=== PATIENT | female | born 1955 | race Caucasian/White ===

== ENCOUNTER 2016-12-18 19:34 | Emergency (ER) | payer MEDICARE, OTHER, MEDICAID ==
--- NOTE | 2016-12-18 20:11 | EDM.PDOC ---
ED HPI GENERAL MEDICAL PROBLEM - General Stated Complaint: by ambulance Time Seen by Provider: 12/18/16 19:50 Source of Information: Reports: Patient, EMS, [facility] records History Limitations: Reports: No limitations - History of Present Illness INITIAL COMMENTS - FREE TEXT/NARRATIVE: This 61 yo female patient reports to the ED by [facility] due to increased shortness of breath. The patient had gotten an iron infusion in [place] earlier today. This patient reports she had a sudden increase in shortness of breath and pain throughout her entire chest. The patient reports her symptoms are much better now. The patient reports she had an iron infusion by Dr. Walsh in [place] today. The patient is being evaluated for a "blood disorder" in [place], but she has not been told what the name of the disorder is. The patient reports she has had similar symptoms in the past. The last similar incident resulted in her being transferred to [place], but nothing was found and she was discharged. Onset: today, sudden Onset Date: 12/18/16 Duration: Minutes:, Improving Location: Reports: chest (diffuse chest pains) Quality: Reports: Ache, Dull Severity: severe (initially) Improves with: Reports: Medication (oxygen) Worsens with: Reports: Movement Associated Symptoms: Reports: chest pain, shortness of breath, weakness Mid-Sternal Chest Pain Score (Numeric/FACES): 7 - Related Data Allergies Allergy/AdvReac Type Severity Reaction Status Date / Time No Known Allergies Allergy Verified 08/02/15 19:25 Home Meds: Home Meds Amitriptyline [Elavil] 100 mg PO BEDTIME 12/06/14 [History] Aspirin [Jade Chewable Aspirin] 81 mg PO DAILY 12/06/14 [History] Cholecalciferol (Vitamin D3) [Vitamin D3] 1,000 unit PO DAILY 12/06/14 [History] Hydrochlorothiazide 12.5 mg PO DAILY 12/06/14 [History] Insulin NPH Human Isophane [Novolin N] 16 units SQ BEDTIME 12/06/14 [History] Insulin NPH/Insulin Reg,Human [HumuLIN 70-30 Pen] 20 units SQ QAM 12/06/14 [ History] Insulin Regular, Human [NovoLIN R] 10 units SQ QAM 12/06/14 [History] Insulin Regular, Human [NovoLIN R] 16 units SQ BEDTIME 12/06/14 [History] Losartan [Cozaar] 50 mg PO BID 12/06/14 [History] Simvastatin [Zocor] 20 mg PO BEDTIME 12/06/14 [History] metFORMIN [Glucophage] 1,000 mg PO BID 12/06/14 [History] traMADol [Ultram] 50 mg PO Q4H PRN 12/06/14 [History] Vitamin B Complex 1 each PO DAILY 08/02/15 [History] Past Medical History HEENT History: Reports: Impaired vision, Other (see below) Other HEENT History: missing teeth - patient states is from diabetes Cardiovascular History: Reports: High cholesterol, Hypertension TOBACCO WEIGHER History: Reports: , Other (see below) Other OB/BYN History: miscarriage Musculoskeletal History: Reports: Other (see below) 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 Psychiatric History: Reports: Anxiety, Depression Endocrine/Metabolic History: Reports: Diabetes, type II - Infectious Disease History Infectious Disease History: Reports: Chicken pox, Measles, Mumps - Past Surgical History HEENT Surgical History: Reports: Adenoidectomy, Laser surgery, Tonsillectomy GI Surgical History: Reports: Cholecystectomy Female Surgical History: Reports: section Social & Family History - Tobacco Use Smoking Status *Q: Never Smoker Second Hand Smoke Exposure: No - Alcohol Use Days Per Week of Alcohol Use: 0 - Recreational Drug Use Recreational Drug Use: No ED ROS GENERAL - Review of Systems Review Of Systems: ROS reveals no pertinent complaints other than HPI. ED EXAM, GENERAL - Physical Exam Exam: See Below Exam Limited By: No limitations General Appearance: alert, WD/WN, moderate distress, obese Eye Exam: bilateral eye: EOMI, normal inspection, PERRL Ears: normal external exam, normal canal, hearing grossly normal, normal TMs Nose: normal inspection, normal mucosa, no blood Throat/Mouth: Normal inspection, Normal lips, Normal teeth, Normal gums, Normal oropharynx, Normal voice, No airway compromise Head: atraumatic, normocephalic Neck: normal inspection, supple, non-tender, full range of motion Respiratory/Chest: no respiratory distress, decreased breath sounds (right lower lobes) Cardiovascular: normal peripheral pulses, regular rate, rhythm, no gallop, no JVD, no murmur, no rub GI/Abdominal: normal bowel sounds, soft, non tender, no organomegaly, no distention, no abnormal bruit, no mass (Female) Exam: Deferred Rectal (Female) Exam: Deferred Back Exam: normal inspection, full range of motion, NT Extremities: normal inspection, normal range of motion, non-tender, normal capillary refill, no pedal edema Neurological: alert, oriented, CN II-XII intact, normal cognition, normal gait, normal reflexes, no motor/sensory deficits Psychiatric: normal affect, normal mood Skin Exam: Warm, Dry, Intact, Normal color, No rash Lymphatic: no adenopathy Course - Vital Signs Last Recorded V/S: Last Vital Signs Temp 36.2 C 12/18/16 19:34 Pulse 103 H 12/18/16 19:34 Resp 34 H 12/18/16 19:34 BP 202/108 H 12/18/16 19:34 Pulse Ox 88 L 12/18/16 19:34 - Orders/Labs/Meds Orders: Active Orders 24 hr Category Date Time Status EKG Documentation Completion [RC] URGENT Care 12/18/16 19:43 Active CULTURE BLOOD [BC] Stat Lab 12/18/16 22:07 Ordered CULTURE BLOOD [BC] Stat Lab 12/18/16 22:07 Ordered cefTRIAXone [Rocephin] 1 gm Med 12/18/16 22:08 Ordered Sodium Chloride 0.9% [Normal Saline] 50 ml IV ONETIME Blood Culture x2 Reflex Set [OM.PC] Stat Oth 12/18/16 22:07 Ordered Medication Orders Ceftriaxone Sodium 1 gm/ (Sodium Chloride) 50 mls @ 100 mls/hr IV ONETIME ONE Stop: 12/18/16 22:37 Labs: Laboratory Tests 12/18/16 12/18/16 12/18/16 Range/Units 19:50 19:50 19:50 WBC 15.8 H (5.0-10.0) 10^3/uL RBC 3.09 L (4.2-5.4) 10^6/uL Hgb 10.0 L (12.0-16.0) g/dL Hct 31.0 L (37.0-47.0) % MCV 100.3 H (80-100) fL MCH 32.4 (27.0-34.0) pg MCHC 32.3 L (33.0-35.0) g/dL Plt Count 534 H (150-450) 10^3/uL Neut % (Auto) 68.6 (42.2-75.2) % Lymph % (Auto) 20.4 L (20.5-50.1) % [place] % (Auto) 6.5 (2-8) % Eos % (Auto) 4.2 H (1.0-3.0) % Baso % (Auto) 0.3 (0.0-1.0) % PT 9.6 (9.0-12.0) SEC INR 1.0 (0.9-1.2) D-Dimer, Quantitative 1050 H (0-400) ng/mL Sodium 134 L (135-145) mmol/L Potassium 4.9 (3.6-5.0) mmol/L Chloride 106 (101-111) mmol/L Carbon Dioxide 24.0 (21.0-31.0) mmol/L Anion Gap 8.9 BUN 31 H (7-18) mg/dL Creatinine 1.8 H (0.6-1.3) mg/dL Est Cr Clr Drug Dosing TNP Estimated GFR (MDRD) 29 BUN/Creatinine Ratio 17.22 Glucose 294 H (74-105) mg/dL Calcium 7.8 L (8.4-10.2) mg/dl Total Bilirubin 0.3 (0.2-1.0) mg/dL AST 25 (10-42) IU/L ALT 18 (10-60) IU/L Alkaline Phosphatase 64 (42-121) IU/L Troponin I 0.03 H* (0.00-0.02) ng/ml B-Natriuretic Peptide (0-100) pg/ml Total Protein 5.3 L (6.7-8.2) g/dl Albumin 2.3 L (3.2-5.5) g/dl Globulin 3.0 Albumin/Globulin Ratio 0.77 05//17 Range/Units 19:50 WBC (5.0-10.0) 10^3/uL RBC (4.2-5.4) 10^6/uL Hgb (12.0-16.0) g/dL Hct (37.0-47.0) % MCV (80-100) fL MCH (27.0-34.0) pg MCHC (33.0-35.0) g/dL Plt Count (150-450) 10^3/uL Neut % (Auto) (42.2-75.2) % Lymph % (Auto) (20.5-50.1) % [place] % (Auto) (2-8) % Eos % (Auto) (1.0-3.0) % Baso % (Auto) (0.0-1.0) % PT (9.0-12.0) SEC INR (0.9-1.2) D-Dimer, Quantitative (0-400) ng/mL Sodium (135-145) mmol/L Potassium (3.6-5.0) mmol/L Chloride (101-111) mmol/L Carbon Dioxide (21.0-31.0) mmol/L Anion Gap BUN (7-18) mg/dL Creatinine (0.6-1.3) mg/dL Est Cr Clr Drug Dosing Estimated GFR (MDRD) BUN/Creatinine Ratio Glucose (74-105) mg/dL Calcium (8.4-10.2) mg/dl Total Bilirubin (0.2-1.0) mg/dL AST (10-42) IU/L ALT (10-60) IU/L Alkaline Phosphatase (42-121) IU/L Troponin I (0.00-0.02) ng/ml B-Natriuretic Peptide 2430 H (0-100) pg/ml Total Protein (6.7-8.2) g/dl Albumin (3.2-5.5) g/dl Globulin Albumin/Globulin Ratio Meds: Medications Generic Name Dose Route Start Last Admin Trade Name Freq PRN Reason Stop Dose Admin Ceftriaxone Sodium 1 gm/ 50 mls @ 100 mls/hr 12/18/16 22:08 Sodium Chloride IV 12/18/16 22:37 ONETIME ONE Discontinued Medications Generic Name Dose Route Start Last Admin Trade Name Freq PRN Reason Stop Dose Admin Furosemide 40 mg 12/18/16 22:00 Lasix IVPUSH 12/18/16 22:01 NOW ONE Departure - Departure Time of Disposition: 22:08 Disposition: DC/Tfer to Acute Hospital 02 Condition: poor Clinical Impression: Elevated troponin, CHF (congestive heart failure) Pneumonia Qualifiers: Pneumonia type: due to unspecified organism Laterality: bilateral Lung location : lower lobe of lung Qualified Code(s): J18.9 - Pneumonia, unspecified organism Care Plan Goals: Discussed the history, examination, treatments, lab, x-ray and EKG results with Dr. Mancia (Hospitalist with [facility] in [place]). Dr. Mancia accepted the patient for continued evaluation and management as an inpatient at [facility] in [place]. The patient will be transported by [facility]. - My Orders Last 24 Hours: My Active Orders 12/18/16 19:43 EKG Documentation Completion [RC] URGENT 12/18/16 22:07 CULTURE BLOOD [BC] Stat CULTURE BLOOD [BC] Stat Blood Culture x2 Reflex Set [OM.PC] Stat 12/18/16 22:08 cefTRIAXone [Rocephin] 1 gm Sodium Chloride 0.9% [Normal Saline] 50 ml IV ONETIME - Assessment/Plan Last 24 Hours: My Active Orders 12/18/16 19:43 EKG Documentation Completion [RC] URGENT 12/18/16 22:07 CULTURE BLOOD [BC] Stat CULTURE BLOOD [BC] Stat Blood Culture x2 Reflex Set [OM.PC] Stat 12/18/16 22:08 cefTRIAXone [Rocephin] 1 gm Sodium Chloride 0.9% [Normal Saline] 50 ml IV ONETIME
[2016-12-18 20:25] LABS: CHLORIDE,CL 106 mmol/L (101-111); SODIUM,NA 134 mmol/L (135-145)
[2016-12-18] MEDS ORDERED: Furosemide 40 MG/4 ML VIAL IVPUSH ONE (22:00)
[2016-12-18] MEDS ORDERED: cefTRIAXone 1 GM in Sodium Chloride 0.9% 50 ML IV ONE (22:08)
[2016-12-18] MEDS ORDERED: Acetaminophen 325 MG Tab PO ONE (23:26)
[2016-12-19 02:37] VITALS: BP 162/64
--- NOTE | 2017-01-12 11:33 | EKG ---
12/18/2016- ELIZABET ORTEZ - EKG per my reading shows sinus rhythm at a rate of 104. [facility] /[id number]
== END 2016-12-18 23:43 ==
LOC: DL.ED 19:34
DX: I50.9 Heart failure, unspecified (principal); J18.9 Pneumonia, unspecified organism; E78.00 Pure hypercholesterolemia, unspecified; I10 Essential (primary) hypertension; E11.9 Type 2 diabetes mellitus without complications; Z90.49 Acquired absence of other specified parts of digestive tract
CPT/HCPCS: 36415; 71010; 80053; 83880; 84484; 85025; 85379; 85610; 87040; 93005; 96365; 96375; 99285; A9270; J0696; J1940; J7050; 93010; 99284

== ENCOUNTER 2019-04-29 16:06 | Emergency (ER) | payer MEDICARE, MEDICAID ==
[2019-04-29 17:01] LABS: ANION GAP 15.8
--- NOTE | 2019-04-29 18:10 | EDM.PDOC ---
ED HPI GENERAL MEDICAL PROBLEM - General Chief Complaint: Chest Pain Stated Complaint: COMING IN PER DR TRUONG FROM DIALYSIS Time Seen by Provider: 04/29/19 16:30 Source of Information: Reports: Patient, [facility] Care Records, RN, RN Notes Reviewed History Limitations: Reports: No Limitations - History of Present Illness INITIAL COMMENTS - FREE TEXT/NARRATIVE: Pt to ER with NH staff from Dialysis. Dialysis staff states the patient was c/o chest pain during the dialysis run and was taken off about 30 minutes early. Prior to transferring the patient back to [facility] where she resides, the patient was brought to ER for evaluation. When asked, the patient states she does not remember what happened during dialysis. When asked if she has any pain at this time, the patient denies. Patient denies N/V/D. Denies recent illness. States she is unsure why she is on dialysis. Admits to hx of diabetes. Onset: Today - Related Data Allergies Allergy/AdvReac Type Severity Reaction Status Date / Time No Known Allergies Allergy Verified 04/29/19 16:24 Home Meds: Home Meds Aspirin [Jade Chewable Aspirin] 81 mg PO DAILY 12/06/14 [History] Cholecalciferol (Vitamin D3) [Vitamin D3] 1,000 unit PO DAILY 12/06/14 [History] Insulin NPH Human Isophane [Novolin N] 16 units SQ BEDTIME 12/06/14 [History] Insulin NPH/Insulin Reg,Human [HumuLIN 70-30 Pen] 20 units SQ QAM 12/06/14 [ History] Insulin Regular, Human [NovoLIN R] 10 units SQ QAM 12/06/14 [History] Insulin Regular, Human [NovoLIN R] 16 units SQ BEDTIME 12/06/14 [History] Losartan [Cozaar] 100 mg PO DAILY 12/06/14 [History] Simvastatin [Zocor] 20 mg PO BEDTIME 12/06/14 [History] traMADol [Ultram] 50 mg PO Q6HR PRN 12/06/14 [History] Amitriptyline [Elavil] 25 mg PO DAILY 04/29/19 [History] B Complex & C No.20/Folic Acid [Mynephrocaps Softgel] 1 tab PO DAILY 04/29/19 [ History] Bumetanide 2 mg PO DAILY 04/29/19 [History] Calcium Acetate [PhosLo] 3 oz PO TID 04/29/19 [History] Carvedilol 25 mg PO BID 04/29/19 [History] Pantoprazole [ProTONIX] 40 mg PO DAILY 04/29/19 [History] Sertraline [Zoloft] 50 mg PO DAILY 04/29/19 [History] Spironolactone [Aldactone] 25 mg PO DAILY 04/29/19 [History] metOLazone [Metolazone] 5 mg PO DAILY 04/29/19 [History] Past Medical History HEENT History: Reports: Impaired Vision, Other (See Below) Other HEENT History: missing teeth - patient states is from diabetes Cardiovascular History: Reports: High Cholesterol, Hypertension [employer] HEL[employer] History: Reports: , Other (See Below) Other [employer] History: miscarriage Musculoskeletal History: Reports: Other (See Below) 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 Psychiatric History: Reports: Anxiety, Depression Endocrine/Metabolic History: Reports: Diabetes, Type II Other Oncologic History: senior care reports that patient had iron infusion today "for her cancer" - Infectious Disease History Infectious Disease History: Reports: Chicken Pox, Measles, Mumps - Past Surgical History HEENT Surgical History: Reports: Adenoidectomy, Laser Surgery, Tonsillectomy GI Surgical History: Reports: Cholecystectomy Female Surgical History: Reports: Section Social & Family History - Family History Family Medical History: Noncontributory - Tobacco Use Smoking Status *Q: Unknown Ever Smoked - Caffeine Use Caffeine Use: Reports: None - Recreational Drug Use Recreational Drug Use: No ED ROS GENERAL - Review of Systems Review Of Systems: ROS reveals no pertinent complaints other than HPI. ED EXAM, GENERAL - Physical Exam Exam: See Below Exam Limited By: No Limitations General Appearance: Alert, WD/WN, No Apparent Distress Eye Exam: Bilateral Eye: Normal Inspection Ears: Normal External Exam, Hearing Grossly Normal Nose: Normal Inspection Throat/Mouth: Normal Inspection, Normal Voice, No Airway Compromise Head: Atraumatic, Normocephalic Neck: Normal Inspection, Supple, Non-Tender, Limited Range of Motion Respiratory/Chest: No Respiratory Distress, No Accessory Muscle Use, Chest Non- Tender, Decreased Breath Sounds Cardiovascular: Normal Peripheral Pulses, No Edema, No Gallop, No JVD, No Murmur , No Rub, Irregularly Irregular Peripheral Pulses: 2+: Radial (R) GI/Abdominal: Normal Bowel Sounds, Soft, Non-Tender, No Organomegaly, No Distention, No Abnormal Bruit, No Mass, Pelvis Stable (Female) Exam: Deferred Rectal (Female) Exam: Deferred Back Exam: Normal Inspection, Full Range of Motion Extremities: Normal Inspection, Normal Range of Motion, Non-Tender, No Pedal Edema, Normal Capillary Refill, Other (Left arm mid forearm stump. ) Neurological: Alert, Oriented Psychiatric: Flat Affect Skin Exam: Warm, Dry, Intact, Normal Color, No Rash Lymphatic: No Adenopathy Course - Vital Signs Last Recorded V/S: Last Vital Signs Temp 98.2 F 04/29/19 18:55 Pulse 65 04/29/19 18:55 Resp 17 04/29/19 18:55 BP 100/67 04/29/19 18:55 Pulse Ox 96 04/29/19 18:55 - Orders/Labs/Meds Orders: Active Orders 24 hr Category Date Time Status EKG Documentation Completion [RC] STAT Care 04/29/19 16:20 Active CULTURE BLOOD [BC] Stat Lab 04/29/19 18:58 Received CULTURE BLOOD [BC] Stat Lab 04/29/19 19:04 Received Blood Culture x2 Reflex Set [OM.PC] Stat Oth 04/29/19 18:34 Ordered Labs: Laboratory Tests 04/29/19 04/29/19 04/29/19 Range/Units 16:30 16:30 16:31 WBC 13.7 H (5.0-10.0) 10^3/uL RBC 3.66 L (4.2-5.4) 10^6/uL Hgb 12.5 D (12.0-16.0) g/dL Hct 37.6 (37.0-47.0) % MCV 102.7 H (80-100) fL MCH 34.2 H (27.0-34.0) pg MCHC 33.2 (33.0-35.0) g/dL Plt Count 334 D (150-450) 10^3/uL Neut % (Auto) 90.5 H (42.2-75.2) % Lymph % (Auto) 4.9 L (20.5-50.1) % [place] % (Auto) 4.1 (2-8) % Eos % (Auto) 0.1 L (1.0-3.0) % Baso % (Auto) 0.4 (0.0-1.0) % PT 9.9 (9.0-12.0) SEC INR 1.0 (0.9-1.2) Sodium 139 (135-145) mmol/L Potassium 3.8 (3.6-5.0) mmol/L Chloride 96 L (101-111) mmol/L Carbon Dioxide 31.0 (21.0-31.0) mmol/L Anion Gap 15.8 BUN 21 H (7-18) mg/dL Creatinine 2.8 H (0.6-1.3) mg/dL Est Cr Clr Drug Dosing 16.48 mL/min Estimated GFR (MDRD) 17 BUN/Creatinine Ratio 7.50 Glucose 196 H (74-105) mg/dL Calcium 8.3 L (8.4-10.2) mg/dl Total Bilirubin 0.8 (0.2-1.0) mg/dL AST 36 (10-42) IU/L ALT 36 (10-60) IU/L Alkaline Phosphatase 75 (42-121) IU/L Troponin I 0.03 H* (0.00-0.02) ng/ml B-Natriuretic Peptide 687 H (0-100) pg/ml Total Protein 6.9 (6.7-8.2) g/dl Albumin 3.6 (3.2-5.5) g/dl Globulin 3.3 Albumin/Globulin Ratio 1.09 Meds: Medications Discontinued Medications Generic Name Dose Route Start Last Admin Trade Name Freq PRN Reason Stop Dose Admin Levofloxacin 500 mg 04/29/19 18:42 04/29/19 18:52 Levaquin PO 04/29/19 18:43 500 mg ONETIME ONE Administration - Radiology Interpretation Free Text/Narrative:: Chest xray: FINDINGS: Lungs: No suspicious pulmonary nodules or areas of lung consolidation. Pleural space: Costophrenic angles are sharp. No pneumothorax. Heart/Mediastinum: Unremarkable. No cardiomegaly. Vasculature: Left subclavian or axillary vascular stent. Bones/joints: Age appropriate. IMPRESSION: 1. No active disease of the chest. 2. Appearance improved when compared to CR Chest 1V Frontal 12/18/2016 8:35 PM. Thank you for allowing us to participate in the care of your patient. Dictated and Authenticated by: Regino Judge MD 04/29/2019 5:50 PM Central Time ([place] & [place]) See rad report - Re-Assessments/Exams Free Text/Narrative Re-Assessment/Exam: 04/30/19 09:46 Discussed patient case with Dr. Truong who states the patient can be transferred back to [facility] after blood cultures have been obtained and oral Levaquin given. She will follow care from there. Departure - Departure Time of Disposition: 19:00 Disposition: DC[place] [id number] Reason for Transfer *Q: Other Condition: Fair Clinical Impression: Chest pain Qualifiers: Chest pain type: unspecified Qualified Code(s): R07.9 - Chest pain, unspecified Leucocytosis Qualifiers: Leukocytosis type: unspecified Qualified Code(s): D72.829 - Elevated white blood cell count, unspecified Referrals: PCP,None [Primary Care Provider] - Forms: ED Department Discharge Additional Instructions: Further orders per Dr. Truong Patient may be discharged to [facility] at this time - My Orders Last 24 Hours: My Active Orders 04/29/19 16:20 EKG Documentation Completion [RC] STAT 04/29/19 18:34 Blood Culture x2 Reflex Set [OM.PC] Stat 04/29/19 18:58 CULTURE BLOOD [BC] Stat 04/29/19 19:04 CULTURE BLOOD [BC] Stat - Assessment/Plan Last 24 Hours: My Active Orders 04/29/19 16:20 EKG Documentation Completion [RC] STAT 04/29/19 18:34 Blood Culture x2 Reflex Set [OM.PC] Stat 04/29/19 18:58 CULTURE BLOOD [BC] Stat 04/29/19 19:04 CULTURE BLOOD [BC] Stat
[2019-04-29] MEDS ORDERED: Levofloxacin 500 MG Tab PO ONE (18:42)
[2019-04-29 18:55] VITALS: BP 100/67; PULSE 65
== END 2019-04-29 19:01 ==
LOC: DL.ED 16:06
DX: R07.9 Chest pain, unspecified (principal); D72.829 Elevated white blood cell count, unspecified; E11.9 Type 2 diabetes mellitus without complications; F41.9 Anxiety disorder, unspecified; F32.9 Major depressive disorder, single episode, unspecified; I10 Essential (primary) hypertension; E78.00 Pure hypercholesterolemia, unspecified; Z79.82 Long term (current) use of aspirin; Z79.4 Long term (current) use of insulin; Z79.899 Other long term (current) drug therapy
CPT/HCPCS: 36415; 71045; 80053; 83880; 84484; 85025; 85610; 87040; 93005; 99285; A9270; 87077; 87186

== ENCOUNTER 2019-04-30 12:37 | Emergency (ER) | payer MEDICARE, MEDICAID ==
--- NOTE | 2019-04-30 11:16 | EDM.PDOC ---
ED HPI GENERAL MEDICAL PROBLEM - General Stated Complaint: GENERAL Time Seen by Provider: 04/30/19 12:32 Source of Information: Reports: Patient, M[facility] Records, Provider (Dr. Truong), RN, RN Notes Reviewed History Limitations: Reports: No Limitations - History of Present Illness INITIAL COMMENTS - FREE TEXT/NARRATIVE: Patient to ER per [place] transportation van. Patient was seen after dialysis yesterday with c/o chest pain. Patient was taken off dialysis 1/2 hour early due to the chest pain. Upon arrival to the ER she was pain free. Labs were completed. Preliminary blood cultures were positive. Patient had been treated with Levaquin 500mg yesterday. PCP Dr. Truong was informed of blood cultures and patient was transported back to the ER for labwork, IV vanco, and transfer to [facility]. Upon arrival to the ER, patient states she understands she has an infection and needs to be transferred to [place]. She states she presently has a chest "pressure", states it is not a pain, but a pressure. States the pain improves when she presses on her chest. Onset: Gradual Frontal Head Pain Score (Numeric/FACES): 7 - Related Data Allergies Allergy/AdvReac Type Severity Reaction Status Date / Time No Known Allergies Allergy Verified 04/30/19 13:01 Home Meds: Home Meds Aspirin [Jade Chewable Aspirin] 81 mg PO DAILY 12/06/14 [History] Cholecalciferol (Vitamin D3) [Vitamin D3] 1,000 unit PO DAILY 12/06/14 [History] Insulin NPH Human Isophane [Novolin N] 16 units SQ BEDTIME 12/06/14 [History] Insulin NPH/Insulin Reg,Human [HumuLIN 70-30 Pen] 20 units SQ QAM 12/06/14 [ History] Insulin Regular, Human [NovoLIN R] 10 units SQ QAM 12/06/14 [History] Insulin Regular, Human [NovoLIN R] 14 units SQ BEDTIME 12/06/14 [History] Losartan [Cozaar] 100 mg PO DAILY 12/06/14 [History] Simvastatin [Zocor] 20 mg PO BEDTIME 12/06/14 [History] traMADol [Ultram] 50 mg PO Q6HR PRN 12/06/14 [History] Amitriptyline [Elavil] 25 mg PO DAILY 04/29/19 [History] B Complex & C No.20/Folic Acid [Mynephrocaps Softgel] 1 tab PO DAILY 04/29/19 [ History] Bumetanide 2 mg PO DAILY 04/29/19 [History] Calcium Acetate [PhosLo] 3 oz PO TID 04/29/19 [History] Carvedilol 25 mg PO BID 04/29/19 [History] Pantoprazole [ProTONIX] 40 mg PO DAILY 04/29/19 [History] Sertraline [Zoloft] 50 mg PO DAILY 04/29/19 [History] Spironolactone [Aldactone] 25 mg PO DAILY 04/29/19 [History] Past Medical History HEENT History: Reports: Impaired Vision, Other (See Below) Other HEENT History: missing teeth - patient states is from diabetes Cardiovascular History: Reports: High Cholesterol, Hypertension 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: , Other (See Below) Other VACUUM COOKER OPERATOR History: miscarriage Musculoskeletal History: Reports: Other (See Below) 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 Psychiatric History: Reports: Anxiety, Depression Endocrine/Metabolic History: Reports: Diabetes, Type II Other Oncologic History: care home reports that patient had iron infusion today "for her cancer" - Infectious Disease History Infectious Disease History: Reports: Chicken Pox, Measles, Mumps - Past Surgical History HEENT Surgical History: Reports: Adenoidectomy, Laser Surgery, Tonsillectomy GI Surgical History: Reports: Cholecystectomy Female Surgical History: Reports: Section Social & Family History - Family History Family Medical History: Noncontributory - Caffeine Use Caffeine Use: Reports: None ED ROS GENERAL - Review of Systems Review Of Systems: ROS reveals no pertinent complaints other than HPI. ED EXAM, GENERAL - Physical Exam Exam: See Below Exam Limited By: No Limitations General Appearance: Alert, WD/WN, Mild Distress Eye Exam: Bilateral Eye: EOMI, Normal Inspection Ears: Normal External Exam, Hearing Grossly Normal Nose: Normal Inspection Throat/Mouth: Normal Inspection, Normal Voice, No Airway Compromise Head: Atraumatic, Normocephalic Neck: Normal Inspection, Supple, Non-Tender, Full Range of Motion Respiratory/Chest: No Respiratory Distress, No Accessory Muscle Use, Decreased Breath Sounds, Other (chest tender with palpation) Cardiovascular: Normal Peripheral Pulses, Regular Rate, Rhythm, No Edema, No Gallop, No JVD, No Murmur, No Rub GI/Abdominal: Normal Bowel Sounds, Soft, Non-Tender (Female) Exam: Deferred Rectal (Female) Exam: Deferred Back Exam: Normal Inspection, Decreased Range of Motion Extremities: Normal Inspection, Limited Range of Motion, Other (left arm stump) Neurological: Alert, Oriented, CN II-XII Intact, Normal Cognition Psychiatric: Anxious, Tearful Skin Exam: Warm, Dry, Intact, Normal Color, No Rash Lymphatic: No Adenopathy Course - Vital Signs Last Recorded V/S: Last Vital Signs Temp 98.1 F 04/30/19 12:51 Pulse 60 04/30/19 12:51 Resp 18 04/30/19 12:51 BP 113/47 L 04/30/19 12:51 Pulse Ox 99 04/30/19 12:51 - Orders/Labs/Meds Labs: Laboratory Tests 04/30/19 04/30/19 04/30/19 Range/Units 12:45 12:45 12:45 WBC 9.3 (5.0-10.0) 10^3/uL RBC 3.76 L (4.2-5.4) 10^6/uL Hgb 12.7 (12.0-16.0) g/dL Hct 38.0 (37.0-47.0) % MCV 101.1 H (80-100) fL MCH 33.8 (27.0-34.0) pg MCHC 33.4 (33.0-35.0) g/dL Plt Count 295 (150-450) 10^3/uL Neut % (Auto) 80.4 H (42.2-75.2) % Lymph % (Auto) 14.0 L (20.5-50.1) % [place] % (Auto) 5.1 (2-8) % Eos % (Auto) 0.2 L (1.0-3.0) % Baso % (Auto) 0.3 (0.0-1.0) % Sodium 136 (135-145) mmol/L Potassium 3.7 (3.6-5.0) mmol/L Chloride 95 L (101-111) mmol/L Carbon Dioxide 27.0 (21.0-31.0) mmol/L Anion Gap 17.7 BUN 39 H (7-18) mg/dL Creatinine 4.7 H D (0.6-1.3) mg/dL Est Cr Clr Drug Dosing 9.81 mL/min Estimated GFR (MDRD) 9 BUN/Creatinine Ratio 8.29 Glucose 178 H (74-105) mg/dL Lactic Acid 1.5 (0.5-2.2) mmol/L Calcium 8.8 (8.4-10.2) mg/dl Total Bilirubin 0.5 (0.2-1.0) mg/dL AST 47 H (10-42) IU/L ALT 39 (10-60) IU/L Alkaline Phosphatase 73 (42-121) IU/L Troponin I 0.04 H* (0.00-0.02) ng/ml Total Protein 6.6 L (6.7-8.2) g/dl Albumin 3.4 (3.2-5.5) g/dl Globulin 3.2 Albumin/Globulin Ratio 1.06 Meds: Medications Discontinued Medications Generic Name Dose Route Start Last Admin Trade Name Freq PRN Reason Stop Dose Admin Vancomycin HCl 1 gm/ Sodium 250 mls @ 167 mls/hr 04/30/19 11:11 04/30/19 13: 09 Chloride IV 04/30/19 12:40 167 mls/hr ONETIME ONE Administration Sodium Chloride 10 ml 04/30/19 11:11 Saline Flush FLUSH ASDIRECTED PRN Keep Vein Open - Re-Assessments/Exams Free Text/Narrative Re-Assessment/Exam: 04/30/19 11:14 Pt to ER per [place] transportation van. Patient sent per Dr. Truong orders. Labwork from last evening shows positive blood cultures. Dr. Truong has talked with Dr. Rosen at [facility] in [place] and he has accepted the patient for admission at [facility] in [place]. Patient will be transferred to [place] via [facility]. Departure - Departure Time of Disposition: 13:24 Disposition: DC/Tfer to Acute Hospital 02 Condition: Fair Clinical Impression: Chronic kidney disease with end stage renal failure on dialysis Sepsis Qualifiers: Sepsis type: sepsis due to unspecified organism Sepsis acute organ dysfunction status: unspecified Qualified Code(s): A41.9 - Sepsis, unspecified organism Diabetes Qualifiers: Diabetes mellitus type: type 2 Diabetes mellitus rat exterminator insulin use: with rat exterminator use Diabetes mellitus complication status: with kidney complications Diabetes mellitus complication detail: with chronic kidney disease Chronic kidney disease stage: on chronic dialysis Qualified Code(s): E11.22 - Type 2 diabetes mellitus with diabetic chronic kidney disease - Discharge Information *PRESCRIPTION DRUG MONITORING PROGRAM REVIEWED*: No *COPY OF PRESCRIPTION DRUG MONITORING REPORT IN PATIENT WILLY: No Referrals: PCP,Unknown [Primary Care Provider] - Forms: ED Department Discharge
--- NOTE | 2019-04-30 11:58 | PCM.SN ---
- Free Text/Narrative Note: Tabatha Dukes is 63-year-old female resident of [facility]. She has ESRD and on hemodialysis (), She was seen in the ER on the evening of after she complained of not feeling well during dialysis. She complained of some chest pain. She was taken off 30 minutes early and brought to the ER for further evaluation. This morning she is being brought back to the ER for transfer to [place] for the following reasons: 1. Two sets of blood cultures were drawn last night. This morning, all 4 bottles are positive for a Gram positive organism, in clusters. ID/sensitivity pending. 2. Recurrent chest pain at [facility] this morning. Events at [facility] home: At 0730 this morning she complained again of "not feeling well" but no specific complaints. Some nausea, no vomiting. She then ate breakfast, took meds and drank 240 ml of fluid. About 2 hours later, she complained of back pain and later chest pain. The CP was non-radiating and she was rubbing her sternum and epigastric areas. The back pain was in the lower thoracic-upper lumbar area. She was given 50 mg of Tramadol for the back pain. Vital signs: 0930: Temp 99.7. 137/60. HR 75. RR 20. 96% on RA. 1025: Temp 98.5. 124/57. HR 70. RR 20. 96% on RA. Slightly diaphoretic. Impression: 1. Possible sepsis in a dailysis patient: Four/four blood culture bottles positive for a Gram positive organism. 2. Chest pain. Cardiac Cath at [facility] in 2015 showed non-obstructive CAD with reduced EF. Plan: 1. Case discussed with , Hospitalist in [place]. He accepted Kelle for transfer and admission to [facility] at 1050 AM. 2. Kelle will go to [facility] and will be transferred from there. New blood cultures will be drawn. She will be given 1 gm IV Vanco. She was given 500 mg po levofloxacin last night. Additional lab work will be done prior to transfer: WBC, lactate, troponin. The case and plan were discussed with the ER provider, Anita Bryan NP. Fortunately, Kelle was seen by Ms. Bryan last evening as well. Condition at the time of transfer from [facility] to [place]: stable. Code Status: Full Code.
[~2019-04-30 12:37] MED LIST: Sodium Chloride 0.9% 10 ML Syringe FLUSH PRN
[2019-04-30 12:55] VITALS: BP 113/47; PULSE 60
[2019-04-30 13:26] LABS: ANION GAP 17.7
== END 2019-04-30 13:35 ==
LOC: DL.ED 12:37
DX: A41.9 Sepsis, unspecified organism (principal); E11.22 Type 2 diabetes mellitus with diabetic chronic kidney disease; I12.0 Hypertensive chronic kidney disease with stage 5 chronic kidney disease or end stage renal disease; N18.6 End stage renal disease; F32.9 Major depressive disorder, single episode, unspecified; E78.00 Pure hypercholesterolemia, unspecified; F41.9 Anxiety disorder, unspecified; Z90.49 Acquired absence of other specified parts of digestive tract; Z98.890 Other specified postprocedural states; Z79.899 Other long term (current) drug therapy; Z79.4 Long term (current) use of insulin; Z79.82 Long term (current) use of aspirin
CPT/HCPCS: 36415; 80053; 83605; 84484; 85025; 87040; 93005; 96365; 99285; J3370; J7050; 87077; 87186

== ENCOUNTER 2019-05-06 16:13 | Emergency (ER) | payer MEDICARE, MEDICAID ==
[2019-05-06 16:25] VITALS: BP 104/48; PULSE 81
[2019-05-06 17:37] LABS: ANION GAP 17.8; CHLORIDE,CL 98 mmol/L (101-111); SODIUM,NA 139 mmol/L (135-145)
--- NOTE | 2019-05-06 18:09 | EDM.PDOC ---
Scribed by Renata Day 05/06/19 1697 for Chelsy Rodriguez NP ED HPI GENERAL MEDICAL PROBLEM - General Chief Complaint: General Stated Complaint: CAME FROM DIALYSIS- SICK Time Seen by Provider: 05/06/19 16:38 Source of Information: Reports: Patient, RN, RN Notes Reviewed History Limitations: Reports: No Limitations - History of Present Illness INITIAL COMMENTS - FREE TEXT/NARRATIVE: Patient is a 63-year-old female who comes from dialysis. She was in [facility] in [place] and was discharged on 05/04/19 for septicemia. She was attending dialysis today and her blood pressure dropped so they stopped dialysis. They gave her a fluid bolus, 200 ml and Ancef. She has a history of diabetes mellitus with blood sugar of 330. She is a full code per Dr. Truong. [facility] [place] and managed by Dr. Truong. Denies chest pain or shortness of breath. Onset: Gradual Duration: Constant Location: Reports: Generalized Quality: Reports: Ache Severity: Moderate Improves with: Reports: None Worsens with: Reports: None Associated Symptoms: Reports: No Other Symptoms - Related Data Allergies Allergy/AdvReac Type Severity Reaction Status Date / Time No Known Allergies Allergy Verified 04/30/19 13:01 Home Meds: Home Meds Aspirin [Jade Chewable Aspirin] 81 mg PO DAILY 12/06/14 [History] Cholecalciferol (Vitamin D3) [Vitamin D3] 1,000 unit PO DAILY 12/06/14 [History] Losartan [Cozaar] 100 mg PO DAILY 12/06/14 [History] Simvastatin [Zocor] 20 mg PO BEDTIME 12/06/14 [History] traMADol [Ultram] 50 mg PO Q12H PRN 12/06/14 [History] B Complex & C No.20/Folic Acid [Mynephrocaps Softgel] 1 tab PO DAILY 04/29/19 [ History] Bumetanide 4 mg PO DAILY 04/29/19 [History] Carvedilol 25 mg PO BID 04/29/19 [History] Pantoprazole [ProTONIX] 40 mg PO DAILY 04/29/19 [History] Sertraline [Zoloft] 50 mg PO DAILY 04/29/19 [History] Spironolactone [Aldactone] 25 mg PO DAILY 04/29/19 [History] Acetaminophen [Pain Reliever] 500 mg PO Q4H PRN 05/06/19 [History] Calcium Acetate [PhosLo] 3 cap PO ASDIRECTED 05/06/19 [History] Insulin Glarg,Human.Rec.Analog [Lantus] 14 unit SQ DAILY 05/06/19 [History] Ondansetron [Zofran] 4 mg PO Q8H PRN 05/06/19 [History] Simvastatin 20 mg PO BEDTIME 05/06/19 [History] metOLazone [Zaroxolyn] 5 mg PO DAILY 05/06/19 [History] Past Medical History HEENT History: Reports: Impaired Vision, Other (See Below) Other HEENT History: missing teeth - patient states is from diabetes Cardiovascular History: Reports: High Cholesterol, Hypertension Respiratory History: Reports: None Genitourinary History: Reports: None 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: , Other (See Below) Other COUNTER STITCHER History: miscarriage Musculoskeletal History: Reports: Other (See Below) 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 Neurological History: Reports: None Psychiatric History: Reports: Anxiety, Depression Endocrine/Metabolic History: Reports: Diabetes, Type II Hematologic History: Reports: None Immunologic History: Reports: None Other Oncologic History: [facility] that patient had iron infusion today "for her cancer" Dermatologic History: Reports: None - Infectious Disease History Infectious Disease History: Reports: Chicken Pox, Measles, Mumps - Past Surgical History HEENT Surgical History: Reports: Adenoidectomy, Laser Surgery, Tonsillectomy GI Surgical History: Reports: Cholecystectomy Female Surgical History: Reports: Section Social & Family History - Family History Family Medical History: Noncontributory - Caffeine Use Caffeine Use: Reports: None ED ROS GENERAL - Review of Systems Review Of Systems: ROS reveals no pertinent complaints other than HPI. ED EXAM, GENERAL - Physical Exam Exam: See Below Exam Limited By: No Limitations General Appearance: Other (somewhat lethargic. This si no different from her usual per Dr. Truong and [facility].) Eye Exam: Bilateral Eye: EOMI, Normal Inspection, PERRL Ears: Normal External Exam, Normal Canal, Hearing Grossly Normal, Normal TMs Nose: Normal Inspection, Normal Mucosa, No Blood Throat/Mouth: Normal Inspection, Normal Lips, Normal Teeth, Normal Gums, Normal Oropharynx, Normal Voice, No Airway Compromise Head: Atraumatic, Normocephalic Neck: Normal Inspection, Supple, Non-Tender, Full Range of Motion Respiratory/Chest: No Respiratory Distress, Lungs Clear, Normal Breath Sounds, No Accessory Muscle Use, Chest Non-Tender Cardiovascular: Normal Peripheral Pulses, Regular Rate, Rhythm, No Edema, No Gallop, No JVD, No Murmur, No Rub GI/Abdominal: Normal Bowel Sounds, Soft, Non-Tender, No Organomegaly, No Distention, No Abnormal Bruit, No Mass (Female) Exam: Deferred Rectal (Female) Exam: Deferred Back Exam: Normal Inspection, Full Range of Motion, NT Extremities: Normal Inspection, Normal Range of Motion, Non-Tender, Normal Capillary Refill, No Pedal Edema Neurological: Other (answer question one word.) Psychiatric: Normal Affect, Normal Mood Skin Exam: Other (left fistula with no redness.) Course - Vital Signs Last Recorded V/S: Last Vital Signs Temp 36.6 C 05/06/19 16:23 Pulse 81 05/06/19 16:23 Resp 18 05/06/19 16:23 BP 104/48 L 05/06/19 16:23 Pulse Ox 97 05/06/19 16:23 - Orders/Labs/Meds Orders: Active Orders 24 hr Category Date Time Status Blood Glucose Check, Bedside [RC] ONETIME Care 05/06/19 17:04 Active Labs: Laboratory Tests 05/06/19 05/06/19 05/06/19 Range/Units 17:05 17:05 17:07 WBC 16.1 H (5.0-10.0) 10^3/uL RBC 2.88 L (4.2-5.4) 10^6/uL Hgb 9.7 L D (12.0-16.0) g/dL Hct 29.2 L (37.0-47.0) % MCV 101.4 H (80-100) fL MCH 33.7 (27.0-34.0) pg MCHC 33.2 (33.0-35.0) g/dL Plt Count 457 H D (150-450) 10^3/uL Neut % (Auto) 74.8 (42.2-75.2) % Lymph % (Auto) 20.4 L (20.5-50.1) % [place] % (Auto) 4.6 (2-8) % Eos % (Auto) 0.0 L (1.0-3.0) % Baso % (Auto) 0.2 (0.0-1.0) % Add Manual Diff Yes Neutrophils % (Manual) 75 (42-75) % Lymphocytes % (Manual) 22 (20-50) % Atypical Lymphs % 1 % Monocytes % (Manual) 2 (2-8) % Platelet Estimate Increased Sodium 139 (135-145) mmol/L Potassium 3.8 (3.6-5.0) mmol/L Chloride 98 L (101-111) mmol/L Carbon Dioxide 27.0 (21.0-31.0) mmol/L Anion Gap 17.8 BUN 92 H D (7-18) mg/dL Creatinine 6.0 H D (0.6-1.3) mg/dL Est Cr Clr Drug Dosing TNP Estimated GFR (MDRD) 7 BUN/Creatinine Ratio 15.33 Glucose 320 H (74-105) mg/dL POC Glucose 330 H (70-105) mg/dl Calcium 7.9 L (8.4-10.2) mg/dl Total Bilirubin 0.9 (0.2-1.0) mg/dL AST 15 (10-42) IU/L ALT 15 (10-60) IU/L Alkaline Phosphatase 48 (42-121) IU/L Total Protein 6.2 L (6.7-8.2) g/dl Albumin 2.6 L (3.2-5.5) g/dl Globulin 3.6 Albumin/Globulin Ratio 0.72 - Re-Assessments/Exams Free Text/Narrative Re-Assessment/Exam: 05/06/19 18:[address] 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 Some increase in her WBC but this is to be expected with her bacteremia; and she is on IV nafcillin after dialysis. No fevers. She was able to tolerate po fluids. Will send her back to [facility] Truong. 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 Truong whom will follow her [facility]. Will send back to [facility] Truong and she will receive her night time lantus for her elevated blood sugar. She was able to drink 360 ml of po fluids and tolerated well. As discussed with [facility] and Dr. truong to lift fluid restrictions for tonight. VSS prior to discharge and more alert. - My Orders Last 24 Hours: My Active Orders 05/06/19 17:04 Blood Glucose Check, Bedside [RC] ONETIME - Assessment/Plan Last 24 Hours: My Active Orders 05/06/19 17:04 Blood Glucose Check, Bedside [RC] ONETIME I have read and agree with the documentation that has been completed regarding this visit. By signing this record, I attest that the documentation was completed in my physical presence and is an accurate record of the encounter.
== END 2019-05-06 18:28 ==
LOC: DL.ED 16:13
DX: E11.69 Type 2 diabetes mellitus with other specified complication (principal); R78.81 Bacteremia; E11.22 Type 2 diabetes mellitus with diabetic chronic kidney disease; I12.9 Hypertensive chronic kidney disease with stage 1 through stage 4 chronic kidney disease, or unspecified chronic kidney disease; N18.9 Chronic kidney disease, unspecified; E78.00 Pure hypercholesterolemia, unspecified; Z79.4 Long term (current) use of insulin; Z99.2 Dependence on renal dialysis; Z79.82 Long term (current) use of aspirin; Z79.899 Other long term (current) drug therapy
CPT/HCPCS: 36415; 80053; 82962; 85025; 99285

== ENCOUNTER 2019-05-08 06:50 | Emergency (ER) | payer MEDICARE, MEDICAID ==
--- NOTE | 2019-05-08 05:49 | PCM.SN ---
- Free Text/Narrative Note: 05/08/2019 [facility] Resident being referred to ER for evaluation of possible GI bleed. History of present illness: Tabatha is a 63-year-old female, currently being treated for a high-grade MMSA bacteremia. She is receiving IV nafcillin three times a week, following dialysis, for presumptive endocarditis. She was recently seen in the ER (04/29 and 04/30) at the time the bacteremia was found. She was then hospitalized in [place] from 04/30 - 05/04 for the bacteremia. Workup did not reveal a source. Ultrasound of the fistula was negative for fluid collection or adenopathy. A transthoracic Echo was negative for vegetation but Tabatha refused to have a transesophageal Echo performed. She was seen again in the ER on 05/05/19, for hypotension during her dialysis. Thr run was stopped, she was given a 200 cc fluid bolus and seen the the ER prior to returning to the alf. BP in ER was 104/48, pulse 81. She was afebrile and had no new complaints. Labs showed a Hgb/Hct of 9.7 and 29.2 (post-dialysis and fluid bolus). Her Hgb/Hct at the time of discharge from [facility] were 11 and 32.6. After Kelle returned to [place] on 05/05, she was noted to have dark stool. Nursing called this morning shortly after 0400 to say that she had vomited a small amount of emesis and what appeared to be a dark clot. She vomited once after that and brought up another small dark clot. Vital signs at 0345: 106/50, HR 69, RR 24, 92% on RA, temp 98.6, blood sugar 420. Skin was warm and dry. Blood pressure on return to the ER on Wednesday was 130/55. She has had no new complaints: no abdominal pain. She has been eating and drinking. There is no previous history of a GI bleed but it should be noted that she had a gastric bypass in 2010. Impression: Possible GI bleed in this diabetic dialysis patient who is currently being treated for high-grade MSSA bacteremia. Plan: Will send to [facility] for further evaluation. Will have Hgb/Hct rechecked to evaluate need for transfusion. If Hgb/Hct are lower, will need to consider transfer to [place] for Gastroenterology Consult and endoscopy. This was discussed with Tabatha this morning, given that she had refused to complete the workup for the bacteremia. She stated that she would go, if necessary, and would participate with the treatment plan. Condition at the time of transfer to [place]: Stable. Code Status: Full Code. Addendum: retirement staff called again at 0555 with new vitals: 98/46, pulse 68, RR 24, Temp 97.7. Ox Sat 85% on RA, placed on nasal oxygen.
[2019-05-08] MEDS ORDERED: Sodium Chloride 0.9% 10 ML Syringe FLUSH PRN (07:02)
--- NOTE | 2019-05-08 07:09 | EDM.PDOC ---
ED HPI GENERAL MEDICAL PROBLEM - General Chief Complaint: Gastrointestinal Problem Stated Complaint: ER Time Seen by Provider: 05/08/19 06:50 Source of Information: Reports: Patient, EMS, EMS Notes Reviewed, Provider (Dr. Truong), RN, RN Notes Reviewed History Limitations: Reports: No Limitations - History of Present Illness INITIAL COMMENTS - FREE TEXT/NARRATIVE: Pt to ER per [facility] with possible GI bleed. Patient is currently being treated with Nafcillin for bacteremia. Patient has recently had dark stools noted at the [facility], and early this morning had emesis x2 with dark blood clots. Patient denies any pain at this time. Patient currently is on dialysis three times weekly. Hgb on 05/05/19 was 9.7. Upon arrival to the ER patient had a large black/bloody stool (approx 300-350ml). Onset: Gradual - Related Data Allergies Allergy/AdvReac Type Severity Reaction Status Date / Time No Known Allergies Allergy Verified 05/08/19 06:59 Home Meds: Home Meds Aspirin [Jade Chewable Aspirin] 81 mg PO DAILY 12/06/14 [History] Cholecalciferol (Vitamin D3) [Vitamin D3] 1,000 unit PO DAILY 12/06/14 [History] Losartan [Cozaar] 100 mg PO DAILY 12/06/14 [History] Simvastatin [Zocor] 20 mg PO BEDTIME 12/06/14 [History] traMADol [Ultram] 50 mg PO Q12H PRN 12/06/14 [History] B Complex & C No.20/Folic Acid [Mynephrocaps Softgel] 1 tab PO DAILY 04/29/19 [ History] Bumetanide 4 mg PO DAILY 04/29/19 [History] Carvedilol 25 mg PO BID 04/29/19 [History] Pantoprazole [ProTONIX] 40 mg PO DAILY 04/29/19 [History] Sertraline [Zoloft] 50 mg PO DAILY 04/29/19 [History] Spironolactone [Aldactone] 25 mg PO DAILY 04/29/19 [History] Acetaminophen [Pain Reliever] 500 mg PO Q4H PRN 05/06/19 [History] Calcium Acetate [PhosLo] 3 cap PO ASDIRECTED 05/06/19 [History] Insulin Glarg,Human.Rec.Analog [Lantus] 14 unit SQ DAILY 05/06/19 [History] Ondansetron [Zofran] 4 mg PO Q8H PRN 05/06/19 [History] Simvastatin 20 mg PO BEDTIME 05/06/19 [History] metOLazone [Zaroxolyn] 5 mg PO DAILY 05/06/19 [History] Past Medical History HEENT History: Reports: Impaired Vision, Other (See Below) Other HEENT History: missing teeth - patient states is from diabetes Cardiovascular History: Reports: High Cholesterol, Hypertension Respiratory History: Reports: None Genitourinary History: Reports: None COASTAL AND ESTUARY SPECIALIST History: Reports: , Other (See Below) Other COASTAL AND ESTUARY SPECIALIST History: miscarriage Musculoskeletal History: Reports: Other (See Below) 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 Neurological History: Reports: None Psychiatric History: Reports: Anxiety, Depression Endocrine/Metabolic History: Reports: Diabetes, Type II Hematologic History: Reports: None Immunologic History: Reports: None Other Oncologic History: [facility] that patient had iron infusion today "for her cancer" Dermatologic History: Reports: None - Infectious Disease History Infectious Disease History: Reports: Chicken Pox, Measles, Mumps - Past Surgical History Head Surgeries/Procedures: Reports: None HEENT Surgical History: Reports: Adenoidectomy, Laser Surgery, Tonsillectomy GI Surgical History: Reports: Cholecystectomy Female Surgical History: Reports: Section Social & Family History - Family History Family Medical History: Noncontributory - Tobacco Use Smoking Status *Q: Never Smoker - Caffeine Use Caffeine Use: Reports: None - Recreational Drug Use Recreational Drug Use: No ED ROS GENERAL - Review of Systems Review Of Systems: ROS reveals no pertinent complaints other than HPI. ED EXAM, GI/ABD - Physical Exam Exam: See Below Exam Limited By: No Limitations General Appearance: Alert, WD/WN, No Apparent Distress Eyes: Bilateral: Normal Appearance Ears: Normal External Exam, Hearing Grossly Normal Nose: Normal Inspection Throat/Mouth: Normal Inspection, Normal Voice, No Airway Compromise Head: Atraumatic, Normocephalic Neck: Normal Inspection Respiratory/Chest: No Respiratory Distress, No Accessory Muscle Use, Decreased Breath Sounds Cardiovascular: Normal Peripheral Pulses, Regular Rate, Rhythm GI/Abdominal Exam: Normal Bowel Sounds, Soft, Non-Tender, No Organomegaly, No Distention (Female) Exam: Deferred Rectal (Female) Exam: Bloody Stool, Heme + Stool Back Exam: Normal Inspection Extremities: Normal Inspection, Limited Range of Motion Neurological: Alert, Oriented Psychiatric: Depressed Mood Skin Exam: Warm, Dry, Intact, No Rash, Pallor Lymphatic: No Adenopathy Course - Vital Signs Last Recorded V/S: Last Vital Signs Temp 97.4 F 05/08/19 08:19 Pulse 72 05/08/19 08:19 Resp 24 H 05/08/19 08:19 BP 120/53 L 05/08/19 08:19 Pulse Ox 100 05/08/19 08:19 - Orders/Labs/Meds Orders: Active Orders 24 hr Category Date Time Status EKG Documentation Completion [RC] STAT Care 05/08/19 07:01 Active Peripheral IV Care [RC] . DIRECTED Care 05/08/19 07:03 Active RED BLOOD CELLS LP [BBK] Stat Lab 05/08/19 07:05 Results TYPE AND SCREEN [BBK] Stat Lab 05/08/19 07:05 Results Octreotide [SandoSTATIN] 500 mcg Med 05/08/19 07:45 Active Sodium Chloride 0.9% [Normal Saline] 250 ml IV ASDIRECTED Sodium Chloride 0.9% [Saline Flush] Med 05/08/19 07:02 Active 10 ml FLUSH ASDIRECTED PRN Peripheral IV Insertion Adult [OM.PC] Stat Oth 05/08/19 07:01 Ordered Transfuse PRBC [Transfuse Red Blood Cells] [COMM] Stat Oth 05/08/19 08:57 Ordered Medication Orders Octreotide Acetate 500 mcg/ (Sodium Chloride) 255 mls @ 12.5 mls/hr IV ASDIRECTED [facility] Last Admin: 05/08/19 07:41 Dose: 12.5 mls/hr Sodium Chloride (Saline Flush) 10 ml FLUSH ASDIRECTED PRN PRN Reason: Keep Vein Open Last Admin: 05/08/19 07:13 Dose: 10 ml Labs: Laboratory Tests 05/08/19 05/08/19 05/08/19 Range/Units 07:05 07:05 07:05 WBC 21.9 H (5.0-10.0) 10^3/uL RBC 1.70 L (4.2-5.4) 10^6/uL Hgb 5.6 L* D (12.0-16.0) g/dL Hct 17.5 L* (37.0-47.0) % MCV 102.9 H (80-100) fL MCH 32.9 (27.0-34.0) pg MCHC 32.0 L (33.0-35.0) g/dL Plt Count 460 H (150-450) 10^3/uL Neut % (Auto) 76.2 H (42.2-75.2) % Lymph % (Auto) 19.6 L (20.5-50.1) % [place] % (Auto) 3.9 (2-8) % Eos % (Auto) 0.1 L (1.0-3.0) % Baso % (Auto) 0.2 (0.0-1.0) % Add Manual Diff Yes Neutrophils % (Manual) 76 H (42-75) % Band Neutrophils % 1 % Lymphocytes % (Manual) 20 (20-50) % Monocytes % (Manual) 3 (2-8) % PT 14.3 H D (9.0-12.0) SEC INR 1.4 H (0.9-1.2) Sodium 136 (135-145) mmol/L Potassium 5.1 H (3.6-5.0) mmol/L Chloride 96 L (101-111) mmol/L Carbon Dioxide 26.0 (21.0-31.0) mmol/L Anion Gap 19.1 BUN 153 H D (7-18) mg/dL Creatinine 8.3 H D (0.6-1.3) mg/dL Est Cr Clr Drug Dosing 5.56 mL/min Estimated GFR (MDRD) 5 BUN/Creatinine Ratio 18.43 Glucose 376 H (74-105) mg/dL Lactic Acid (0.5-2.2) mmol/L Calcium 7.9 L (8.4-10.2) mg/dl Total Bilirubin 1.1 H (0.2-1.0) mg/dL AST 36 (10-42) IU/L ALT 19 (10-60) IU/L Alkaline Phosphatase 34 L (42-121) IU/L Total Protein 4.7 L (6.7-8.2) g/dl Albumin 2.1 L (3.2-5.5) g/dl Globulin 2.6 Albumin/Globulin Ratio 0.81 Blood Type Gel Antibody Screen Crossmatch 05/08/19 05/08/19 Range/Units 07:05 07:53 WBC (5.0-10.0) 10^3/uL RBC (4.2-5.4) 10^6/uL Hgb (12.0-16.0) g/dL Hct (37.0-47.0) % MCV (80-100) fL MCH (27.0-34.0) pg MCHC (33.0-35.0) g/dL Plt Count (150-450) 10^3/uL Neut % (Auto) (42.2-75.2) % Lymph % (Auto) (20.5-50.1) % [place] % (Auto) (2-8) % Eos % (Auto) (1.0-3.0) % Baso % (Auto) (0.0-1.0) % Add Manual Diff Neutrophils % (Manual) (42-75) % Band Neutrophils % % Lymphocytes % (Manual) (20-50) % Monocytes % (Manual) (2-8) % PT (9.0-12.0) SEC INR (0.9-1.2) Sodium (135-145) mmol/L Potassium (3.6-5.0) mmol/L Chloride (101-111) mmol/L Carbon Dioxide (21.0-31.0) mmol/L Anion Gap BUN (7-18) mg/dL Creatinine (0.6-1.3) mg/dL Est Cr Clr Drug Dosing mL/min Estimated GFR (MDRD) BUN/Creatinine Ratio Glucose (74-105) mg/dL Lactic Acid 2.3 H (0.5-2.2) mmol/L Calcium (8.4-10.2) mg/dl Total Bilirubin (0.2-1.0) mg/dL AST (10-42) IU/L ALT (10-60) IU/L Alkaline Phosphatase (42-121) IU/L Total Protein (6.7-8.2) g/dl Albumin (3.2-5.5) g/dl Globulin Albumin/Globulin Ratio Blood Type A POSITIVE Gel Antibody Screen Negative Crossmatch See Detail Meds: Medications Generic Name Dose Route Start Last Admin Trade Name Freq PRN Reason Stop Dose Admin Octreotide Acetate 500 mcg/ 255 mls @ 12.5 mls/hr 05/08/19 07:45 05/08/19 07: 41 Sodium Chloride IV 12.5 mls/hr ASDIRECTED FRANCISCA Administration Sodium Chloride 10 ml 05/08/19 07:02 05/08/19 07:13 Saline Flush FLUSH 10 ml ASDIRECTED PRN Administration Keep Vein Open Discontinued Medications Generic Name Dose Route Start Last Admin Trade Name Meghann PRN Reason Stop Dose Admin Octreotide Acetate 50 mcg 05/08/19 07:30 05/08/19 07:41 Sandostatin IVPUSH 05/08/19 07:31 50 mcg ONETIME ONE Administration Pantoprazole Sodium 80 mg 05/08/19 07:30 05/08/19 07:41 Protonix Iv IVPUSH 05/08/19 07:31 80 mg .BOLUS ONE Administration - Re-Assessments/Exams Free Text/Narrative Re-Assessment/Exam: 05/08/19 09:06 Discussed patient case with Dr. Melgoza who states he may accept the patient for transfer to [facility]. He states they do not have GI coverage until 1999. He would like the patient to receive a unit of blood and monitor to see if she is hemodynamically stable after the first unit. After first unit hung, BP 117/56. Called Dr. Melgoza back and asked if we could transfer the patient, as I could not delay patient transfer to a higher level when she is actively bleeding. He agreed to accept the patient for transfer to [facility]. 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 GI bleed Qualifiers: GI bleed type/associated pathology: unspecified gastrointestinal hemorrhage type Qualified Code(s): K92.2 - Gastrointestinal hemorrhage, unspecified - Discharge Information *PRESCRIPTION DRUG MONITORING PROGRAM REVIEWED*: No *COPY OF PRESCRIPTION DRUG MONITORING REPORT IN PATIENT WILLY: No Forms: ED Department Discharge, Interfacility Transfer EMTALA - My Orders Last 24 Hours: My Active Orders 05/08/19 07:01 EKG Documentation Completion [RC] STAT Peripheral IV Insertion Adult [OM.PC] Stat 05/08/19 07:02 Sodium Chloride 0.9% [Saline Flush] 10 ml FLUSH ASDIRECTED PRN 05/08/19 07:03 Peripheral IV Care [RC] . DIRECTED 05/08/19 07:05 RED BLOOD CELLS LP [BBK] Stat TYPE AND SCREEN [BBK] Stat 05/08/19 07:45 Octreotide [SandoSTATIN] 500 mcg Sodium Chloride 0.9% [Normal Saline] 250 ml IV ASDIRECTED 05/08/19 08:57 Transfuse PRBC [Transfuse Red Blood Cells] [COMM] Stat - Assessment/Plan Last 24 Hours: My Active Orders 05/08/19 07:01 EKG Documentation Completion [RC] STAT Peripheral IV Insertion Adult [OM.PC] Stat 05/08/19 07:02 Sodium Chloride 0.9% [Saline Flush] 10 ml FLUSH ASDIRECTED PRN 05/08/19 07:03 Peripheral IV Care [RC] . DIRECTED 05/08/19 07:05 RED BLOOD CELLS LP [BBK] Stat TYPE AND SCREEN [BBK] Stat 05/08/19 07:45 Octreotide [SandoSTATIN] 500 mcg Sodium Chloride 0.9% [Normal Saline] 250 ml IV ASDIRECTED 05/08/19 08:57 Transfuse PRBC [Transfuse Red Blood Cells] [COMM] Stat
[2019-05-08] MEDS ORDERED: Octreotide 100 MCG/ML SDV IVPUSH ONE (07:30)
[2019-05-08] MEDS ORDERED: Pantoprazole 40 MG Vial IVPUSH ONE (07:30)
[2019-05-08 07:41] LABS: ANION GAP 19.1
[2019-05-08] MEDS ORDERED: Octreotide 500 MCG in Sodium Chloride 0.9% 250 ML IV SCH (07:45)
[2019-05-08 09:13] VITALS: BP 147/72; PULSE 64
== END 2019-05-08 09:25 ==
LOC: DL.ED 06:50
DX: K92.2 Gastrointestinal hemorrhage, unspecified (principal); I12.0 Hypertensive chronic kidney disease with stage 5 chronic kidney disease or end stage renal disease; E11.22 Type 2 diabetes mellitus with diabetic chronic kidney disease; N18.6 End stage renal disease; R78.81 Bacteremia; E78.00 Pure hypercholesterolemia, unspecified; F41.9 Anxiety disorder, unspecified; F32.9 Major depressive disorder, single episode, unspecified; Z99.2 Dependence on renal dialysis; Z79.82 Long term (current) use of aspirin; Z79.899 Other long term (current) drug therapy
CPT/HCPCS: 36415; 36430; 80053; 82272; 83605; 85025; 85610; 86850; 86900; 86901; 86920; 86922; 93005; 96365; 96366; 96375; 99285; C9113; J2354; J7050; P9016